=== PATIENT | male | born 1960 | race Caucasian/White ===

== ENCOUNTER → 2020-10-29 | Outpatient (CLI) | payer OTHER ==
[~2020-10-29] MED LIST: ALPR0.5T7; ALPR0.5T7 PO; CEPH-368 PO; CHOL20002 PO; CHOL400C; HYDR50CA PO; MELO15TA24; MELO15TA24 PO; MORP-52 PO; OXYC10TA6 PO; TRAZ-175 PO
== END | disposition home or self-care (01) ==
LOC: CFH 15:02
PROVIDERS: ATTEND Nurse Practitioner
DX: M19.071 Primary osteoarthritis, right ankle and foot (principal); M25.871 Other specified joint disorders, right ankle and foot; M25.771 Osteophyte, right ankle

== ENCOUNTER 2020-11-01 14:01 | Outpatient (CLI) | payer OTHER | END 2020-11-01 23:59 | disposition home or self-care (01) | LOC: STAR 14:01 | PROVIDERS: ATTEND Anesthesiology | DX: Z20.828 Contact with and (suspected) exposure to other viral communicable diseases (principal) | CPT/HCPCS: U0003 ==

== ENCOUNTER 2020-11-05 15:19 | Day surgery (SDC) | payer OTHER ==
[~2020-11-05] VITALS: Ht 185.4 cm; Wt 82.6 kg
[2020-11-05] MEDS ORDERED: OXYcodone 5 MG/5 ML ORAL.SOL UDC PO PRN (15:30)
[2020-11-05] MEDS ORDERED: HYDROmorphone 1 MG/ML, 1ML INJ IVPush PRN (15:30)
[2020-11-05] MEDS ORDERED: ONDANSETRON 2MG/ML, 2ML IVPush PRN (15:30)
[2020-11-05] MEDS ORDERED: LABETALOL 5MG/ML, 20ML IV PRN (15:30)
[2020-11-05] MEDS ORDERED: hydrALAzine 20 MG/ML, 1ML IV PRN (15:30)
[2020-11-05] MEDS ORDERED: PROMETHAZINE 25 MG/ML, 1ML IVPush PRN (15:30)
[2020-11-05] MEDS ORDERED: EPHEDRINE 50 MG/ML, 1ML IVPush PRN (15:30)
[2020-11-05] MEDS ORDERED: CHLORHEXIDINE 15 ML UDC MM STA (15:42)
[2020-11-05 15:44] VITALS: BP 145/83
[2020-11-05] MEDS ORDERED: CHLORHEXIDINE 15 ML UDC ONE (15:53)
[2020-11-05] MEDS ORDERED: MELO15TA24 PO (15:58)
[2020-11-05 15:59] VITALS: BP 145/83
[2020-11-05] MEDS ORDERED: PLEASE ENTER HEIGHT AND WEIGHT MC SCH (16:00)
[2020-11-05] MEDS ORDERED: LACTATED RINGERS 1,000 ML IV SCH (16:00)
[2020-11-05] MEDS ORDERED: LIDOCAINE/PF 1%, 30ML ONE (16:32)
[2020-11-05] MEDS ORDERED: VANCOMYCIN 500 MG ONE (16:32)
[2020-11-05] MEDS ORDERED: VANCOMYCIN 1,000 MG ONE (16:32)
[2020-11-05] MEDS ORDERED: TRANEXAMIC ACID 100 MG/ML, 10ML ONE (16:32)
[2020-11-05] MEDS ORDERED: BUPIVACAINE/PF 0.5% ONE (16:32)
[2020-11-05] MEDS ORDERED: MIDAZOLAM 1 MG/ML, 2ML ONE (17:21)
[2020-11-05] MEDS ORDERED: FENTANYL PF 100 MCG/2ML ONE ×3 (17:22→20:16)
[2020-11-05] MEDS ORDERED: KETOROLAC 30 MG/1 ML ONE (17:22)
[2020-11-05] MEDS ORDERED: EPHEDRINE 50 MG/ML, 1ML ONE ×2 (17:22→17:45)
[2020-11-05] MEDS ORDERED: ROPIvacaine/PF 0.2%, 100ML 550 ML (check volume) INJ ONE (18:00)
[2020-11-05] MEDS ORDERED: DIAZEPAM 5 MG/ML, 2ML IVPush PRN (18:00)
[2020-11-05] MEDS ORDERED: ONDANSETRON 2MG/ML, 2ML ONE (19:24)
[2020-11-05] MEDS ORDERED: PROPOFOL 10 MG/ML, 20ML ONE (19:24)
[2020-11-05] MEDS ORDERED: CEFAZOLIN 1,000 MG ONE (19:24)
[2020-11-05] MEDS ORDERED: DEXAMETHASONE 4 MG/ML, 1ML ONE (19:24)
[2020-11-05] MEDS ORDERED: HYDROmorphone 1 MG/ML, 1ML INJ ONE (20:16)
[2020-11-05] MEDS ORDERED: OXYcodone 5 MG/5 ML ORAL.SOL UDC ONE (20:16)
[2020-11-05] MEDS: FENTANYL PF 100 MCG/2ML IV PRN ×2 (20:17→20:25)
[2020-11-05] MEDS ORDERED: morphine SULFATE 10 MG/ML, 1ML IV PRN (22:30)
[2020-11-05] MEDS ORDERED: OXYcodone/APAP 5/325MG TABLET PO PRN (22:30)
[2020-11-05] MEDS ORDERED: ONDANSETRON 2MG/ML, 2ML IV PRN (22:30)
[2020-11-06] MEDS ORDERED: ASPIRIN 81 MG TABLET EC PO SCH (09:00)
== END 2020-11-05 23:59 | disposition home or self-care (01) ==
LOC: OR 15:19 → UNDOADMOB 21:50 → 4NE 21:50 → OR 23:59 → UNDODISOB 23:59
PROVIDERS: ATTEND Orthopaedic Surgery
DX: M85.671 Other cyst of bone, right ankle and foot (principal); M84.363A Stress fracture, right fibula, initial encounter for fracture; M19.90 Unspecified osteoarthritis, unspecified site; G89.18 Other acute postprocedural pain; F17.210 Nicotine dependence, cigarettes, uncomplicated; Z79.1 Long term (current) use of non-steroidal anti-inflammatories (NSAID); Z79.891 Long term (current) use of opiate analgesic; Z79.899 Other long term (current) drug therapy; X58.XXXA Exposure to other specified factors, initial encounter; Y93.89 Activity, other specified; Y92.89 Other specified places as the place of occurrence of the external cause; Y99.8 Other external cause status
CPT/HCPCS: 20902; 27703; 28120; 64415; 64447; 73600; 87015; 87070; 87075; 87102; 87116; 87176; 87205; 87206; 88305; C1713; C1762; C1776; J0690; J1100; J1170; J1885; J2250; J2405; J2704; J3010; 76000; G0378; J3370